=== PATIENT | female | born 1980 | race African-American/Black ===

== ENCOUNTER 2025-05-18 00:17 | Emergency (ER) | payer MEDICAID ==
[~2025-05-18] VITALS: Ht 185.4 cm; Wt 118.0 kg
[2025-05-18 00:40] VITALS: O2SAT 97
[2025-05-18] MEDS: ACETAMINOPHEN 325MG TABLET PO ONE (04:25)
[2025-05-18] MEDS: CYCLOBENZAPRINE 10MG TABLET PO ONE (04:25)
[2025-05-18] MEDS: PENICILLIN G BENZATHINE 2,400,000 UNITS/4ML SYR IM ONE (04:28)
[2025-05-18] MEDS: CEFTRIAXONE SODIUM 1G VIAL IM ONE (04:28)
[2025-05-18] MEDS: KETOROLAC 30MG/ML VIAL IM ONE (04:32)
[2025-05-18] MEDS: LIDOCAINE 5% PATCH TOP ONE (04:33)
[2025-05-18] MEDS ORDERED: DOXY100T28 MT (05:26)
[2025-05-18 05:41] VITALS: BP 139/77; PULSE 79; RESP 19; TEMP 36.8; O2SAT 98
[2025-05-18 05:52] LABS: CLARITY URINE TURBID (CLEAR); COLOR URINE DARK YELLOW (YELLOW); GLUCOSE URINE NEGATIVE (NEGATIVE); KETONES URINE 1+ (NEGATIVE); LEUKOCYTE ESTERASE URINE 2+ (NEGATIVE); NITRITE URINE POSITIVE (NEGATIVE); OCCULT BLOOD URINE NEGATIVE (NEGATIVE); PH URINE 5.5 (4.5-8.0); PROTEIN URINE 1+ (NEGATIVE); SPECIFIC GRAVITY URINE 1.042 (1.005-1.030)
[2025-05-18 07:28] LABS: SQUAMOUS EPITHELIAL CELL URINE 2+ /lpf (RARE/1+)
[2025-05-18 07:29] LABS: WBC URINE 15-25 /hpf (0-2)
[2025-05-18 07:30] LABS: BACTERIA URINE 1+; RBC URINE 0-2 /hpf (0-2)
[2025-05-20 05:12] LABS: CHLAMYDIA TRACHOMATIS NAA Negative (Negative); NEISSERIA GONORRHOEAE NAA Negative (Negative)
== END 2025-05-18 05:43 | disposition home or self-care (01) ==
LOC: ER 00:17
DX: A53.9 Syphilis, unspecified (principal); M25.512 Pain in left shoulder; M79.644 Pain in right finger(s); Z20.2 Contact with and (suspected) exposure to infections with a predominantly sexual mode of transmission; E11.9 Type 2 diabetes mellitus without complications; Z79.899 Other long term (current) drug therapy
CPT/HCPCS: 87491; 87591; 81003; 87086; 73030; 73130; 96372; 99284; J0696; J1885; J0561; Z7610 ×2; A4565